=== PATIENT | female | born 1950 | race Two or more races ===

== ENCOUNTER 2024-11-15 06:22 | Day surgery (SDC) | payer OTHER, SELFPAY ==
[2024-11-04 11:07] LABS: Hematocrit 39.2 % (37.0-47.0); Hemoglobin 13.3 g/dL (12.0-16.0); Mean Corp Hgb Conc. 33.9 g/dL (33.0-37.0); Mean Corpuscular Hgb 30.6 pg (27.0-31.0); Mean Corpuscular Volume 90.1 fL (81.0-99.0); Platelet Count 265 10^3/uL (130-400); Red Blood Cell Count 4.35 10^6/uL (4.20-5.40); Red Cell Dist. Width 13.2 % (11.5-14.5); White Blood Cell Count 3.6 10^3/uL (4.8-10.8)
[2024-11-04 11:24] LABS: ALT (SGPT) 24 U/L (0-35); AST (SGOT) 24 U/L (14-36); Albumin 4.4 g/dl (3.5-5.0); Alkaline Phosphatase 83 U/L (38-126); Blood Urea Nitrogen 18 mg/dl (7-17); Calcium 9.7 mg/dl (8.4-10.2); Carbon Dioxide 23 mmol/L (22-30); Chloride 104 mmol/L (98-107); Glucose 100 mg/dl (70-99); Potassium 4.7 mmol/L (3.5-5.1); Sodium 138 mmol/L (135-145); Total Bilirubin 0.8 mg/dl (0.2-1.3); Total Protein 6.6 g/dl (6.3-8.2); eGFR > 60.00
[2024-11-04 11:48] VITALS: BMI 31.0
[2024-11-04 13:11] LABS: Glycohemoglobin (HgbA1c) 5.6 % (4.0-5.6)
[2024-11-04 17:12] VITALS: BMI 31.0
[2024-11-15] VITALS (8 sets, daily range): BP systolic 121–156; BP diastolic 67–84; BMI 31.0
[2024-11-15] MEDS: TYLENOL 1000 MG PO (11:34)
[2024-11-15] MEDS: NORMOSOL-R/PLASMALYTE-A 1000 IV (11:38)
[2024-11-15] MEDS: ANCEF 5 IV (18:28)
== END 2024-11-15 18:40 | disposition home or self-care (01) ==
LOC: SDS 06:22
PROVIDERS: ATTENDING PHYSICIAN Orthopaedic Surgery Hand Surgery; FAMILY PHYSICIAN Internal Medicine; OTHER PHYSICIAN Physician Assistant
DX: M19.011 Primary osteoarthritis, right shoulder (principal)
CPT/HCPCS: 23472; 36415; 73020; 80053; 83036; 85027; 87070; C1713; C1776